=== PATIENT | male | born 2000 | race African-American/Black ===

== ENCOUNTER 2019-04-17 23:15 | Emergency (ER) | payer SELFPAY ==
[~2019-04-17] VITALS: Ht 175.3 cm; Wt 104.0 kg
[2019-04-18] MEDS ORDERED: ONDANSETRON HCL 4MG TABLET PO ONE (03:30)
[2019-04-18] MEDS ORDERED: KETOROLAC 15MG/ML VIAL IV ONE (03:30)
[2019-04-18] MEDS ORDERED: SODIUM CHLORIDE 0.9% 500 ML IV ONE (03:30)
[2019-04-18 03:31] LABS: CLARITY URINE CLEAR (CLEAR); COLOR URINE YELLOW (YELLOW); KETONES URINE NEGATIVE (NEGATIVE); LEUKOCYTE ESTERASE URINE NEGATIVE (NEGATIVE); NITRITE URINE NEGATIVE (NEGATIVE); OCCULT BLOOD URINE NEGATIVE (NEGATIVE); PROTEIN URINE NEGATIVE (NEGATIVE); SPECIFIC GRAVITY URINE 1.024 (1.005-1.030)
[2019-04-18 04:45] VITALS: BP 115/70
== END 2019-04-18 04:45 | disposition home or self-care (01) ==
LOC: ER 23:15
DX: S39.012A Strain of muscle, fascia and tendon of lower back, initial encounter (principal); G44.209 Tension-type headache, unspecified, not intractable; X58.XXXA Exposure to other specified factors, initial encounter; Y93.64 Activity, baseball; Y92.89 Other specified places as the place of occurrence of the external cause; Y99.8 Other external cause status
CPT/HCPCS: 81003; 96374; 99283; J1885; J7040; Q0162; Z7610